=== PATIENT | female | born 1955 | race Caucasian/White ===

== ENCOUNTER → 2023-06-10 14:40 | Outpatient (REF) | payer MEDICARE, OTHER, SELFPAY | LOC: HWWDC 14:40 | PROVIDERS: ATTENDING PHYSICIAN Internal Medicine | DX: Z12.31 Encounter for screening mammogram for malignant neoplasm of breast (principal) | CPT/HCPCS: 77063; 77067 ==

== ENCOUNTER → 2023-06-20 09:13 | Outpatient (REF) | payer MEDICARE, OTHER, SELFPAY | LOC: WDC 09:13 | PROVIDERS: ATTENDING PHYSICIAN Internal Medicine | DX: R92.8 Other abnormal and inconclusive findings on diagnostic imaging of breast (principal) | CPT/HCPCS: 76642 ==

== ENCOUNTER → 2023-12-12 09:17 | Outpatient (REF) | payer MEDICARE, OTHER, SELFPAY | LOC: HWRAD 09:17 | PROVIDERS: ATTENDING PHYSICIAN Internal Medicine | DX: M85.852 Other specified disorders of bone density and structure, left thigh (principal) | CPT/HCPCS: 77080 ==

== ENCOUNTER → 2024-12-01 14:48 | Outpatient (REF) | payer MEDICARE, OTHER, SELFPAY | LOC: WDC 14:48 | PROVIDERS: ATTENDING PHYSICIAN Internal Medicine | DX: Z12.31 Encounter for screening mammogram for malignant neoplasm of breast (principal) | CPT/HCPCS: 77063; 77067 ==

== ENCOUNTER 2025-05-02 16:39 | Emergency (ER) | payer MEDICARE, OTHER, SELFPAY ==
[2025-05-02 16:46] VITALS: BP 118/73
[2025-05-02 17:15] LABS: Hematocrit 47.0 % (37.0-47.0); Hemoglobin 16.2 g/dL (12.0-16.0); Mean Corp Hgb Conc. 34.5 g/dL (33.0-37.0); Mean Corpuscular Volume 87.7 fL (81.0-99.0); Nucleated Red Blood Cells % 0 %; Platelet Count 266 10^3/uL (130-400); Red Cell Dist. Width 12.2 % (11.5-14.5)
[2025-05-02 17:28] LABS: ALT (SGPT) 20 U/L (0-35); AST (SGOT) 22 U/L (14-36); Albumin 4.7 g/dl (3.5-5.0); Alkaline Phosphatase 82 U/L (38-126); Blood Urea Nitrogen 14 mg/dl (7-17); Calcium 9.8 mg/dl (8.4-10.2); Carbon Dioxide 26 mmol/L (22-30); Chloride 100 mmol/L (98-107); Glucose 101 mg/dl (70-99); Lipase 159 U/L (23-300); Potassium 3.7 mmol/L (3.5-5.1); Sodium 135 mmol/L (135-145); Total Protein 7.6 g/dl (6.3-8.2); eGFR > 60.00
[2025-05-02 20:26] VITALS: BP 165/78
[2025-05-02 20:29] VITALS: BMI 30.1
[2025-05-02] MEDS: NSS 1000 IV (20:30)
--- NOTE | 2025-05-02 21:47 | ED.GENMED ---
History of Present Illness
General
Chief Complaint: Abdominal Symptoms
Time Seen by Provider: 05/02/25 20:15
History of Present Illness
History of Present Illness:
70-year-old female with history of IBS presents to the emergency department for evaluation of bloody diarrhea and ruben cramping over the course of the day. Denies any fevers or chills. Notes that she ate a salad from a restaurant yesterday but
split this with her son who does not have any symptoms. Not on blood thinners.
Past History
Past History
ED Past Medical History: None
ED Past Surgical History: None
Social History
Tobacco: Non-smoker
Review of Systems
Review of Systems
Allergies reviewed?: Yes
All Other Systems: ROS reviewed and negative except as documented in HPI and ROS
Phy Exam
Physical Exam
Physical Exam:
GEN: Well appearing, NAD, WDWN
HEENT: Oral mucosa moist, no scleral icterus
Cardiac: Regular rate
Lung: No respiratory distress, no tachypnea
Abd: Soft, moderate LLQ tenderness without rigidity
MSK: No gross deformity or injuries
Skin: Good color, no pallor or jaundice, no rashes
Neuro: AO x3, moves all extremities freely
Psych: Calm, cooperative
Course
Orders/Labs/Results
Orders:
Orders
05/02/25 16:57
Complete Blood Count/With Diff Urgent
Comprehensive Metabolic Panel Urgent
Lipase Urgent
05/02/25 20:25
CT Abd/Pel (IV only)-DH only Urgent
Comment:
Reason For Exam: LLQ pain bloody diarrhea
0.9% Sodium Chloride 1000 ml [Nss] 1,000 ml IV BOLUS
05/02/25 20:31
Lactic Acid Q4H
Comment: CANCEL 2nd LACTIC ACID IF 1st LACTIC ACID IS LESS THAN 2
05/03/25 00:30
Lactic Acid Q4H
Comment: CANCEL 2nd LACTIC ACID IF 1st LACTIC ACID IS LESS THAN 2
Abnormal Lab Results
05/02/25
16:57
WBC 16.9 H 10^3/uL
(4.8-10.8)
Hgb 16.2 H g/dL
(12.0-16.0)
Abs Immat Gran (auto) 0.1 H 10^3/uL
(0-0.05)
Absolute Neuts (auto) 13.3 H 10^3/uL
(1.4-6.5)
Absolute Monos (auto) 1.2 H 10^3/uL
(0.1-0.6)
Neutrophils % 78.5 H %
(42.2-75.2)
Lymphocytes % 13.7 L %
(20.5-51.1)
Glucose 101 H mg/dl
(70-99)
Total Bilirubin 1.9 H mg/dl
(0.2-1.3)
05/02/25 16:57
05/02/25 16:57
Vital Signs
Initial and Last Documented VS:
Initial Vital Signs
Temp Pulse Resp BP Pulse Ox
98.2 F 60 16 118/73 98
05/02/25 16:46 05/02/25 16:46 05/02/25 16:46 05/02/25 16:46 05/02/25 16:46
Last Documented Vital Signs
Temp Pulse Resp BP Pulse Ox
98.6 F 88 20 165/78 99
05/02/25 20:26 05/02/25 20:26 05/02/25 20:26 05/02/25 20:26 05/02/25 20:26
MDM/Problems Addressed
MDM/Problems Addressed:
Vitals stable. Likely acute infectious colitis given normal lactic. No abx indicated at this time particularly given clinical stability. Will write orders for outpatient stool studies. ED return paramters discussed
*Pulse Oximetry
SaO2: 99
Oxygen Mode of Delivery: Room air
Patient hypoxic: no
*Critical Care Note
Total Time (30-74mins, 75-104mins- exclusive of procedures): Not Applicable
ED Attending Note
-
Portions of this chart may have been created with voice recognition software.� Occasional wrong word or��sound alike� substitutions may have occurred due to the inherent limitations of voice recognition software.
Discharge Plan
Departure
Patient Disposition: Home (Routine Discharge)
Date of Disposition: 05/02/25
Time of Disposition: 21:54
Patient with high blood pressure during this ER visit?: No
Discharge Problem:
Acute hemorrhagic colitis
Instructions: Colitis (DC)
Prescriptions:
No Action
prednisone 10 MG tablets,dose pack
10 mg PO Daily Qty: 1 0RF
Rx Instructions:
40 mg �2 days, 30 mg �2 days, 20 mg �2 days, 10mg x 1 day
oxycodone-acetaminophen 5 MG/325 MG tablet
1 tab PO Q4HPRN PRN (Reason: Pain) Qty: 8 0RF
simvastatin 40 MG tablet
40 mg PO QPM
cholecalciferol (vitamin D3) 1,000 UNITS tablet
1,000 units PO DAILY
budesonide-formoterol [Symbicort] 1 PUFF HFA aerosol inhaler
2 puff inhalation R BID
Referrals:
Azeem Hernandez MD [Family Provider]
Interventions
Interventions:
*General Assessment Last Done: 05/02/25 16:46
*Neglect/Abuse Screening Last Done: 05/02/25 16:46
*ED COVID-19 Vaccine History Last Done: 05/02/25 16:46
*ED Influenza Vaccine History Last Done: 05/02/25 16:46
[facility] Risk Assessment Tool Last Done: 05/02/25 20:28
*Risk Screen - Suicide (C-SSRS) Last Done: 05/02/25 16:46
NB-Nhthor-Vorfjggqhc Assessment Last Done: 05/02/25 20:29
Discharge Date and Time
Print Language: [id number]
[2025-05-02 22:17] VITALS: BP 140/72
== END 2025-05-02 22:18 | disposition home or self-care (01) ==
LOC: EMR 16:39
PROVIDERS: Emergency Medicine; Physician Assistant; EMERGENCY PHYSICIAN Student in an Organized Health Care Education/Training Program; FAMILY PHYSICIAN Internal Medicine
DX: K52.9 Noninfective gastroenteritis and colitis, unspecified (principal)
CPT/HCPCS: 99284; 74177; 80053; 83605; 83690; 85025; Q9967